=== PATIENT | male | born 1980 | race Caucasian/White ===

== ENCOUNTER 2019-07-19 12:09 | Emergency (ER) | payer OTHER, SELFPAY ==
[2019-07-19 12:25] VITALS: BP 163/95; PULSE 58; RESP 19; TEMP 37.2; O2SAT 99; BMI 29.9
--- NOTE | 2019-07-19 12:47 | ED.WOUNDLAC ---
HPI - Wound/Laceration <JITENDRA Garcia - Last Filed: 07/19/19 15:53> General Chief Complaint: Wound/Laceration Stated Complaint: Cut on ear Time Seen by Provider: 07/19/19 12:12 Source: patient Mode of arrival: Family Vehicle Limitations: no limitations History of Present Illness HPI narrative: 39yo male who is on Coumadin, presents emergency department for a cut to the top of his right ear this morning. He states he was shaving his mojica and neck his ear, he has been applying pressure but the laceration continues to bleed. Patient denies any severe pain, nausea, vomiting, diarrhea, chest pain, fevers, or any other concerns. Denies any severe pain to ear, denies any other injuries or falls. Patient denies any contact with persons with confirm COVID-19 cases or any travel. Related Data Allergies Allergy/AdvReac Type Severity Reaction Status Date / Time hydrocodone [HYDROCODONE] Allergy Mild MAKES HIM Verified 07/19/19 12:30 ITCH. Penicillins [PENICILLINS] Allergy Mild CHILDHOOD Verified 07/19/19 12:30 RX Review of Systems <JITENDRA Garica - Last Filed: 07/19/19 15:53> Review of Systems Narrative: REVIEW OF SYSTEMS: GENERAL: Denies fever or chills. HENT: Denies head trauma. EYE: Denies double vision or vision loss. CARDIOVASCULAR: Denies syncope. MUSCULOSKELETAL: Denies weakness, or deformities. INTEGUMENTARY: Complains of right ear laceration, see HPI. NEURO: Denies numbness or tingling. Patient History <JITENDRA Garcia - Last Filed: 07/19/19 15:53> Medical History Pulmonary embolism (Acute) Social History Smoking Status: Former smoker Smoking Status: Former smoker alcohol intake frequency: 0-2 drinks per day Substance Use Type: marijuana Exam <JITENDRA Garcia - Last Filed: 07/19/19 15:53> Initial Vital Signs Initial Vital Signs: Vital Signs Temperature 99.0 F 07/19/19 12:25 Pulse Rate 58 L 07/19/19 12:25 Respiratory Rate 19 07/19/19 12:25 Blood Pressure 163/95 H 07/19/19 12:25 Pulse Oximetry 99 07/19/19 12:25 PHYSICAL EXAMINATION: GENERAL: Well groomed, alert, and cooperative. Answers questions promptly and appropriately. Vital signs noted. HENT: Normocephalic, atraumatic. RESPIRATORY: Normal respiratory rate, trachea midline, airway patent. No stridor, nasal flaring or accessory muscle use. MUSCULOSKELETAL: Normal gait and coordination. Equal tone and mass bilaterally. EXTREMITIES: CMS intact. Moves all extremities. SKIN: Warm, dry, soft, appropriate color for ethnicity. 1.5 cm laceration to top of right pinna, and no cartilage involved. Clear margins. Bleeding controlled after application of Dermabond. No surrounding erythema or ecchymosis. NEURO: Alert and Oriented X 3. Good coordination. PSYCH: Appropriate affect and mood. <Abdelrahman Gardner MD - Last Filed: 07/19/19 19:21> Initial Vital Signs Initial Vital Signs: Vital Signs Temperature 99.0 F 07/19/19 12:25 Pulse Rate 58 L 07/19/19 12:25 Respiratory Rate 19 07/19/19 12:25 Blood Pressure 163/95 H 07/19/19 12:25 Pulse Oximetry 99 07/19/19 12:25 Procedures <JITENDRA Garcia - Last Filed: 07/19/19 15:53> Laceration Repair Laceration 1: Site: other (R Pinna) Side (If applicable): right Description: linear Depth: simple, single layer Skin layer closed with: dermabond Course <JITENDRA Garcia - Last Filed: 07/19/19 15:53> Vital Signs Vital signs: Vital Signs - 8 hr 07/19/19 12:25 Temperature 99.0 F Pulse Rate 58 L Respiratory Rate 19 Blood Pressure 163/95 H Pulse Oximetry 99 <Abdelrahman Gardner MD - Last Filed: 07/19/19 19:21> Vital Signs Vital signs: Vital Signs - 8 hr 07/19/19 12:25 Temperature 99.0 F Pulse Rate 58 L Respiratory Rate 19 Blood Pressure 163/95 H Pulse Oximetry 99 MDM - Wound/Laceration <JITENDRA Garcia - Last Filed: 07/19/19 15:53> Medical Records Attestation: I reviewed the patient's medical records. Lab Data Attestation: I reviewed the patient's lab results. MDM Narrative Medical decision making narrative: 39-year-old male who is currently taking warfarin, presents emergency department for a simple laceration to the right side of his ear with continued bleeding. Laceration does not affect cartilage, bleeding was controlled with Dermabond. No signs of infection such as erythema, purulent drainage, or any other concerns. No other trauma noted. He was encouraged to monitor area, and watch for signs of infection, he was encouraged to follow up with primary care provider in 1-2 weeks for further evaluation if any concerns arise. Immediate return to Urgent Care were ED for recurrence symptoms or signs of infection. Patient agreed to plan of care verbalized understanding. Discharge Plan Departure Patient Disposition: Home Clinical Impression: Laceration of ear Qualifiers: Encounter type: initial encounter Laterality: right Qualified Code(s): S01.311A - Laceration without foreign body of right ear, initial encounter Discharge Date/Time: 07/19/19 13:12 Instructions: DI for Laceration Repair Activity Restrictions/Additional Instructions: Thank you for entrusting me with your care today. As discussed, your laceration was repaired with Dermabond, this is a glued that will start to peel off on its own. Do not pick at the glue. After 5 days, you may apply bacitracin or Neosporin to the area to help the glue dissolved. Watch for signs of infection such as increased redness, pain, purulent drainage, increased temp, or fevers-if these occur please be seen immediately. Return to the emergency department if profuse bleeding reoccurs and does not stop after applying pressure.
== END 2019-07-19 13:12 | disposition home or self-care (01) ==
PROVIDERS: Emergency Provider Nurse Practitioner
DX: S01.311A Laceration without foreign body of right ear, initial encounter (principal); W26.9XXA Contact with unspecified sharp object(s), initial encounter; Z79.01 Long term (current) use of anticoagulants
CPT/HCPCS: 99281

== ENCOUNTER 2024-08-04 18:42 | Emergency (ER) | payer OTHER, SELFPAY ==
[2024-08-04 18:48] VITALS: BP 200/112; PULSE 61; RESP 18; TEMP 36.7; O2SAT 100; BMI 32.4
[2024-08-04 19:00] VITALS: BP 175/89; PULSE 66; RESP 18; O2SAT 99
--- NOTE | 2024-08-04 19:05 | EKG_ITS ---
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
--- NOTE | 2024-08-04 19:12 | DI.US.S_ITS ---
PROCEDURE: US PERIPH VENOUS LOW EXTREM BI INDICATIONS: rule out dvt, history of dvt/PE TECHNIQUE: Real-time imaging, as well as color and pulse Doppler interrogation, were performed of the deep veins of both legs from the inguinal ligament to the popliteal fossa, with documentation of the visualized calf veins. COMPARISON: None. FINDINGS: Right: The common femoral, femoral, popliteal, and the visualized calf veins are normally compressible, and free of intraluminal thrombus. Color and pulse Doppler demonstrate normal phasic intravascular flow. There is normal augmentation response to distal compression maneuver. Left: The common femoral, femoral, popliteal, and the visualized calf veins are normally compressible, and free of intraluminal thrombus. Color and pulse Doppler demonstrate normal phasic intravascular flow. There is normal augmentation response to distal compression maneuver. IMPRESSION: No findings of deep venous thrombosis in either lower extremity. Approved by: Eliazar Hernandez M.D. on 08/04/2024 at 20:03
[2024-08-04 19:27] LABS: Add Manual Diff / Slide Review NO; Basophils Absolute Auto 100 /uL (0-100); Basophils Percent Auto 1.4 % (0-2); Eosinophils Absolute Auto 200 /uL (0-450); Eosinophils Percent Auto 2.8 % (2-4); Hematocrit 48.1 % (41-53); Hemoglobin 16.5 g/dL (13.5-17.5); Lymphocytes Absolute Auto 2800 /uL (1100-4500); Lymphocytes Percent Auto 39.4 % (25-40); Mean Corpuscular HGB Conc 34.3 % (30-36); Mean Corpuscular Hemoglobin 32.4 PG (26-34); Mean Corpuscular Volume 94.5 fL (80-100); Monocytes Absolute Auto 500 /uL (0-900); Monocytes Percent Auto 7.1 % (3-14); Neutrophils Absolute Auto 3500 /uL (1500-7000); Neutrophils Percent Auto 49.3 % (50-75); Platelet Count 291 X10^3/uL (150-400); Red Blood Cell Count 5.09 X10^6/uL (4.5-5.9); Red Cell Distribution Width 13.7 % (11.6-14.8)
[2024-08-04 19:38] LABS: INR 3.5 (0.9-1.3); Prothrombin Time 38.5 SECONDS (9.4-12.5)
[2024-08-04 19:39] LABS: Alanine Aminotransferase 57 IU/L (<50); Albumin 4.8 g/dL (3.5-5.0); Albumin Globulin Ratio 1.6 (1.0-2.8); Alkaline Phosphatase 55 U/L (38-126); Aspartate Aminotransferase 39 IU/L (17-59); BUN Creatinine Ratio 7.3 (6-22); Bilirubin Total 0.4 mg/dL (0.2-1.3); Blood Urea Nitrogen 6 mg/dL (9-20); Calcium 9.3 mg/dL (8.4-10.2); Carbon Dioxide 31 mmol/L (22-32); Chloride 101 mmol/L (98-107); Creatine Kinase 123 U/L (55-170); Estimated Glomerular Filt Rate > 60 mL/min (>60); Glucose 80 mg/dL (70-100); HEMOLYSIS < 15 (0-50); Lipase 224 U/L (23-300); Potassium 4.1 mmol/L (3.4-5.1); Sodium 139 mmol/L (137-145); Total Protein 7.8 g/dL (6.3-8.2)
[2024-08-04 19:41] LABS: PTT Partial Thromboplastin Tim 49 SECONDS (25.1-36.5)
[2024-08-04 19:51] LABS: NT-proBNP (BNP-Adult 18+) 363 pg/mL (<125); Troponin I < 0.012 ng/mL (0.01-0.034)
[2024-08-04 22:55] VITALS: O2SAT 97
[2024-08-04 22:56] VITALS: BP 172/97; PULSE 62; O2SAT 99
[2024-08-04 23:00] VITALS: BP 154/87; PULSE 57; O2SAT 99
[2024-08-04 23:30] VITALS: BP 141/87; PULSE 57; RESP 18; O2SAT 97
--- NOTE | 2024-08-04 23:31 | ED.EXTPRO ---
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 Reports he did do some yard work yesterday this morning woke up with both legs quite swollen and painful. Denies any kind of chest pain or shortness of breath. Is followed closely at the [place] and gets his INR checked every 2 weeks. No fever or chills. Related Data Previous Rx's Medication Instructions Recorded furosemide 20 mg tablet (Lasix) 20 mg PO DAILY #3 tabs 08/04/24 Allergies Allergy/AdvReac Type Severity Reaction Status Date / Time hydrocodone [HYDROCODONE] Allergy Mild MAKES HIM Verified 07/19/19 12:30 ITCH. Penicillins [PENICILLINS] Allergy Mild CHILDHOOD Verified 07/19/19 12:30 RX Patient History Medical History (Updated 08/04/24 @ 23:47 by Faiza Escobar DO) Pulmonary embolism Social History Smoking Status: Current every day smoker Smoking Status: Current every day smoker tobacco type: cigarettes alcohol intake frequency: 0-2 drinks per day Exam Initial Vital Signs Initial Vital Signs: Vital Signs Temperature 98.1 F 08/04/24 18:48 Pulse Rate 61 08/04/24 18:48 Respiratory Rate 18 08/04/24 18:48 Blood Pressure 200/112 H 08/04/24 18:48 Pulse Oximetry 100 08/04/24 18:48 Oxygen Delivery Method Room Air 08/04/24 18:48 GENERAL: Alert very pleasant 44-year-old male and in no acute distress. HEENT: Head atraumatic,EOMI, pupils reactive, face symmetric, moist mucous membranes CARDIOVASCULAR: Regular rate and rhythm without murmurs, rubs or gallops. RESPIRATORY: Breath sounds equal bilaterally, no wheezes rales or rhonchi. ABDOMEN: Soft, nontender. Normoactive bowel sounds all 4 quadrants. No guarding or rebound. EXTREMITIES: Normal range of motion, no clubbing. Bilateral lower extremity edema nonpitting no erythema no calf pain Neurovascularly intact NEUROLOGICAL: Alert and oriented x4.Normal gait and speech. Cranial nerves II through XII grossly intact. SKIN: Warm, dry, no laceration, no petechiae, no rashes or lesions. Course Orders Ordered: ED Orders 08/04/24 19:05 EKG-12 Lead Stat 08/04/24 19:12 US periph venous low extrem bi Stat 08/04/24 19:19 Complete Blood Count AUTO DIFF Stat Comprehensive Metabolic Panel Stat Lipase Stat NT-proBNP (BNP-Adult 18+) Stat PTT Partial Thromboplastin Bruno Stat Prothrombin Time INR Stat Troponin & CK Cardiac Panel Stat Discontinued Medications Acetaminophen (Acetaminophen 325 Mg Tablet) 975 mg PO NOW ONE Stop: 08/04/24 23:39 Last Admin: 08/04/24 23:43 Dose: 975 mg Documented By: BERYL Furosemide (Furosemide 20 Mg Tablet) 20 mg PO NOW ONE Stop: 08/04/24 23:40 Last Admin: 08/04/24 23:44 Dose: 20 mg Documented By: BERYL Vital Signs Vital signs: Vital Signs - 8 hr 08/04/24 18:48 08/04/24 19:00 08/04/24 22:55 Temperature 98.1 F Pulse Rate 61 66 Respiratory Rate 18 18 Blood Pressure 200/112 H 175/89 H Pulse Oximetry 100 99 97 Oxygen Delivery Method Room Air Room Air 08/04/24 22:56 08/04/24 22:56 08/04/24 23:00 Temperature Pulse Rate 62 57 L Respiratory Rate Blood Pressure 172/97 H Pulse Oximetry 99 99 Oxygen Delivery Method Room Air 08/04/24 23:00 08/04/24 23:30 08/04/24 23:30 Temperature Pulse Rate 57 L Respiratory Rate 18 Blood Pressure 154/87 H 141/87 H Pulse Oximetry 97 Oxygen Delivery Method MDM - Extremity (Nontraumatic) Lab Data 08/04/24 19:19 08/04/24 19:19 Labs: Lab Results 08/04/24 Range/Units 19:19 WBC 7.0 (4.5-11.0) X10^3/uL RBC 5.09 (4.5-5.9) X10^6/uL Hgb 16.5 (13.5-17.5) g/dL Hct 48.1 (41-53) % MCV 94.5 (80-100) fL MCH 32.4 (26-34) PG MCHC 34.3 (30-36) % RDW 13.7 (11.6-14.8) % Plt Count 291 (150-400) X10^3/uL Neut % (Auto) 49.3 L (50-75) % Lymph % (Auto) 39.4 (25-40) % [place] % (Auto) 7.1 (3-14) % Eos % (Auto) 2.8 (2-4) % Baso % (Auto) 1.4 (0-2) % Neut # (Auto) 3500 (2591-3295) /uL Lymph # (Auto) 2800 (7286-9535) /uL [place] # (Auto) 500 (0-900) /uL Eos # (Auto) 200 (0-450) /uL Baso # (Auto) 100 (0-100) /uL PT 38.5 H (9.4-12.5) SECONDS INR 3.5 H (0.9-1.3) APTT 49 H (25.1-36.5) SECONDS Sodium 139 (137-145) mmol/L Potassium 4.1 (3.4-5.1) mmol/L Chloride 101 (98-107) mmol/L Carbon Dioxide 31 (22-32) mmol/L BUN 6 L (9-20) mg/dL Creatinine 0.82 (0.66-1.25) mg/dL Estimated GFR > 60 (>60) mL/min BUN/Creatinine Ratio 7.3 (6-22) Glucose 80 (70-100) mg/dL Calcium 9.3 (8.4-10.2) mg/dL Total Bilirubin 0.4 (0.2-1.3) mg/dL AST 39 (17-59) IU/L ALT 57 H (<50) IU/L Alkaline Phosphatase 55 (38-126) U/L Total Creatine Kinase 123 (55-170) U/L Troponin I < 0.012 (0.01-0.034) ng/mL NT-Pro-B Natriuret Pep 363 H (<125) pg/mL Total Protein 7.8 (6.3-8.2) g/dL Albumin 4.8 (3.5-5.0) g/dL Globulin 3.0 (1.7-4.1) g/dL Albumin/Globulin Ratio 1.6 (1.0-2.8) Lipase 224 (23-300) U/L Imaging Data US - DVT: Radiologist's Impression: PROCEDURE: US PERIPH VENOUS LOW EXTREM BI INDICATIONS: rule out dvt, history of dvt/PE TECHNIQUE: Real-time imaging, as well as color and pulse Doppler interrogation, were performed of the deep veins of both legs from the inguinal ligament to the popliteal fossa, with documentation of the visualized calf veins. COMPARISON: None. FINDINGS: Right: The common femoral, femoral, popliteal, and the visualized calf veins are normally compressible, and free of intraluminal thrombus. Color and pulse Doppler demonstrate normal phasic intravascular flow. There is normal augmentation response to distal compression maneuver. Left: The common femoral, femoral, popliteal, and the visualized calf veins are normally compressible, and free of intraluminal thrombus. Color and pulse Doppler demonstrate normal phasic intravascular flow. There is normal augmentation response to distal compression maneuver. IMPRESSION: No findings of deep venous thrombosis in either lower extremity. Approved by: Eliazar Hernandez M.D. on 08/04/2024 at 20:03 ECG Data Attestation EKG: I personally reviewed and interpreted this ECG as follows: Prior ECG tracings: not available for review Interpretation: Normal sinus rhythm rate 57 [place] interval 186 QRS [address] changes T-wave inversion noted in AVR and V1 no priors to compare MDM Narrative Medical decision making narrative: Patient 44-year-old male history of clotting disorder on warfarin presenting today with bilateral lower extremity edema. The started after yard work yesterday. Denies absolutely any chest pain or shortness of breath. He does have lower extremity edema no erythema to suggest cellulitis. Blood work has been reviewed he was no leukocytosis no anemia WBC is 7.0 INR 3.5 CMP does not show any electrolyte abnormality creatinine 0.82 Bilirubin liver enzymes within normal limits Troponin negative BNP is 363, CPKs 123 Ultrasound negative for bilateral lower extremity DVT Patient 44-year-old male with swelling of lower extremities. Unlikely to be DVT has a negative ultrasound and INR is supratherapeutic at 3.5. No evidence of erythema. Denies any kind of chest pain or shortness of breath he was not hypoxic. No prior history of congestive heart failure. He reports pretty significant pain in his legs kind of a dull ache. He was no evidence of rhabdomyolysis. Suspect mild fluid overload at this time no evidence of congestive heart failure or need for oxygen. At this time we will start him on on Lasix. However he wants to take it when he gets home he was a long drive which is reasonable. He was given 20 mg of Lasix and Tylenol. Discharge Plan Departure Patient Disposition: Home Clinical Impression: Bilateral lower extremity edema Instructions: DI for Peripheral Edema -- Bilateral Activity Restrictions/Additional Instructions: *You have been diagnosed with peripheral edema *What to do: INR today is 3.5 *Continue to take medications as directed Lasix 20 mg once a day for 3 days--> [facility] [place] [facility] *Follow up with your primary care provider in 2-3 days or call [phone] *Return to ER if you should have increasing swelling chest pain shortness of breath or any new, worsening or concerning symptoms Prescriptions: New furosemide [Lasix] 20 mg tablet 20 mg PO DAILY Qty: 3 0RF Referrals: Jessie Hernadez MD [Primary Care Provider] - Stand Alone Forms: Patient Portal/API/Survey
[2024-08-04] MEDS: ACETAMINOPHEN 325 MG TABLET 975 MG PO (23:43)
[2024-08-04] MEDS: FUROSEMIDE 20 MG TABLET PO (23:44)
== END 2024-08-04 23:57 | disposition home or self-care (01) ==
PROVIDERS: Emergency Provider Emergency Medicine; PCP Internal Medicine
DX: R60.0 Localized edema (principal); Z79.01 Long term (current) use of anticoagulants
CPT/HCPCS: 80053; 82550; 83690; 83880; 84484; 85025; 85610; 85730; 93005; 93970; 99283; 99284